=== PATIENT | female | born 1985 | race African-American/Black ===

== ENCOUNTER 2020-06-11 16:55 | Emergency (ER) | payer MEDICAID ==
[~2020-06-11] VITALS: Ht 162.6 cm; Wt 68.2 kg
[2020-06-11 18:37] LABS: BASOPHILS % (AUTO) 1.2 % (0.0-2.0); EOSINOPHILS % (AUTO) 0.3 % (1.0-6.0); HEMATOCRIT 39.1 % (36-46); HEMOGLOBIN 12.6 g/dL (12.0-16.0); LYMPHOCYTES # (AUTO) 2.3 K/uL (1.0-4.8); MEAN CORPUSCULAR HEMOGLOBIN 28.5 pg (26.0-34.0); MEAN CORPUSCULAR HGB CONC 32.3 G/dL (31.0-37.0); MEAN CORPUSCULAR VOLUME 88 fL (80-100); MONOCYTES # (AUTO) 0.5 K/uL (0.1-1.0); MONOCYTES % (AUTO) 5.6 % (2.0-9.0); NEUTROPHILS # (AUTO) 6.3 K/uL (1.8-7.7); NEUTROPHILS % (AUTO) 67.9 % (40.0-70.0); PLATELET COUNT (AUTO) 427 K/uL (150-450); RED BLOOD CELL COUNT(AUTO) 4.43 MIL/uL (4.00-5.20); RED CELL DISTRIBUTION WIDTH 14.5 % (11.5-14.5)
[2020-06-11 18:53] LABS: ANION GAP 12 mmol/L (8-16); CALCIUM, TOTAL 9.1 mg/dL (8.8-10.5); CARBON DIOXIDE 25 mmol/L (22-29); CHLORIDE 102 mmol/L (98-107); GLOMERULAR FILTR. RATE CALC > 60 mL/min (>60); GLUCOSE,RANDOM 69 mg/dL (70-110); POTASSIUM 3.5 mmol/L (3.5-5.1); SODIUM SERUM 139 mmol/L (136-145); UREA NITROGEN, BLOOD 8 mg/dL (7-18)
[2020-06-11 19:18] LABS: ALANINE AMINOTRANSFERASE 24 U/L (12-78); ALBUMIN 3.8 g/dL (3.4-5.0); ALKALINE PHOSPHATASE 75 U/L (46-116); ASPARTATE AMINOTRANSFERASE 25 U/L (15-37); BILIRUBIN,TOTAL 0.5 mg/dL (0.1-1.0); HCG,QUANTITATIVE < 1 mIU/mL (0-6); TOTAL PROTEIN, SERUM 8.5 g/dL (6.4-8.2)
[2020-06-11 20:54] VITALS: BP 148/88
== END 2020-06-11 20:55 | disposition home or self-care (01) ==
LOC: EMS 16:55
DX: R51.9 Headache, unspecified (principal); F15.90 Other stimulant use, unspecified, uncomplicated
CPT/HCPCS: 80053; 84702; 85025; 99283; G0480

== ENCOUNTER 2020-11-12 05:15 | Emergency (ER) | payer MEDICAID, SELFPAY ==
[~2020-11-12] VITALS: Ht 162.6 cm; Wt 68.0 kg
[2020-11-12 05:51] LABS: BASOPHILS % (AUTO) 1.1 % (0.0-2.0); EOSINOPHILS % (AUTO) 0.6 % (1.0-6.0); HEMATOCRIT 38.9 % (36-46); HEMOGLOBIN 12.5 g/dL (12.0-16.0); LYMPHOCYTES # (AUTO) 2.3 K/uL (1.0-4.8); LYMPHOCYTES % (AUTO) 20.4 % (22.0-44.0); MEAN CORPUSCULAR HEMOGLOBIN 27.9 pg (26.0-34.0); MEAN CORPUSCULAR HGB CONC 32.1 G/dL (31.0-37.0); MEAN CORPUSCULAR VOLUME 87 fL (80-100); MONOCYTES # (AUTO) 0.6 K/uL (0.1-1.0); MONOCYTES % (AUTO) 5.3 % (2.0-9.0); NEUTROPHILS # (AUTO) 8.2 K/uL (1.8-7.7); NEUTROPHILS % (AUTO) 72.6 % (40.0-70.0); PLATELET COUNT (AUTO) 385 K/uL (150-450); RED BLOOD CELL COUNT(AUTO) 4.48 MIL/uL (4.00-5.20); RED CELL DISTRIBUTION WIDTH 15.4 % (11.5-14.5)
[2020-11-12 06:11] LABS: CALCIUM, TOTAL 8.5 mg/dL (8.8-10.5); CARBON DIOXIDE 29 mmol/L (22-29); CHLORIDE 101 mmol/L (98-107); CREATININE 0.56 mg/dL (0.60-1.30); GLOMERULAR FILTR. RATE CALC > 60 mL/min (>60); GLUCOSE,RANDOM 83 mg/dL (70-110); POTASSIUM 3.2 mmol/L (3.5-5.1); UREA NITROGEN, BLOOD 14 mg/dL (7-18)
[2020-11-12 06:23] LABS: ALANINE AMINOTRANSFERASE 19 U/L (12-78); ALBUMIN 3.7 g/dL (3.4-5.0); ALKALINE PHOSPHATASE 65 U/L (46-116); ANION GAP 9 mmol/L (8-16); ASPARTATE AMINOTRANSFERASE 20 U/L (15-37); BILIRUBIN,TOTAL 0.4 mg/dL (0.1-1.0); HCG,QUANTITATIVE < 1 mIU/mL (0-6); SODIUM SERUM 139 mmol/L (136-145); TOTAL PROTEIN, SERUM 7.9 g/dL (6.4-8.2)
[2020-11-12 07:12] VITALS: BP 134/81
[2020-11-12] MEDS ORDERED: POTASSIUM CHLORIDE 10% 40 MEQ/30 ML LIQUID UDCUP PO ONE (07:30)
== END 2020-11-12 08:27 | disposition home or self-care (01) ==
LOC: EMS 05:15
DX: F98.9 Unspecified behavioral and emotional disorders with onset usually occurring in childhood and adolescence (principal); E87.6 Hypokalemia; F17.210 Nicotine dependence, cigarettes, uncomplicated; F15.90 Other stimulant use, unspecified, uncomplicated
CPT/HCPCS: 36415; 80053; 84702; 85025; 99284; G0480

== ENCOUNTER 2020-11-12 12:44 | Emergency (ER) | payer MEDICAID ==
[~2020-11-12] VITALS: Ht 154.9 cm; Wt 45.5 kg
[2020-11-12 15:03] VITALS: BP 120/70
== END 2020-11-12 15:04 | disposition home or self-care (01) ==
LOC: EMS 12:46
DX: F60.0 Paranoid personality disorder (principal); F17.210 Nicotine dependence, cigarettes, uncomplicated; F15.90 Other stimulant use, unspecified, uncomplicated
CPT/HCPCS: 99283

== ENCOUNTER 2020-11-14 08:16 | Inpatient (IN) | payer MEDICAID ==
[~2020-11-14] VITALS: Ht 157.5 cm; Wt 59.1 kg
[2020-11-14 10:09] LABS: COVID AG,FIA SOURCE NASOPHARYNGEAL
[2020-11-14 11:28] LABS: BASOPHILS % (AUTO) 2.2 % (0.0-2.0); EOSINOPHILS % (AUTO) 0.4 % (1.0-6.0); HEMATOCRIT 41.1 % (36-46); HEMOGLOBIN 13.2 g/dL (12.0-16.0); LYMPHOCYTES # (AUTO) 2.9 K/uL (1.0-4.8); LYMPHOCYTES % (AUTO) 24.6 % (22.0-44.0); MEAN CORPUSCULAR HEMOGLOBIN 28.2 pg (26.0-34.0); MEAN CORPUSCULAR HGB CONC 32.1 G/dL (31.0-37.0); MEAN CORPUSCULAR VOLUME 88 fL (80-100); MONOCYTES # (AUTO) 0.6 K/uL (0.1-1.0); MONOCYTES % (AUTO) 5.1 % (2.0-9.0); NEUTROPHILS % (AUTO) 67.7 % (40.0-70.0); PLATELET COUNT (AUTO) 385 K/uL (150-450); RED BLOOD CELL COUNT(AUTO) 4.69 MIL/uL (4.00-5.20)
[2020-11-14 11:40] LABS: ANION GAP 12 mmol/L (8-16); CALCIUM, TOTAL 9.2 mg/dL (8.8-10.5); CARBON DIOXIDE 26 mmol/L (22-29); CHLORIDE 102 mmol/L (98-107); CREATININE 0.67 mg/dL (0.60-1.30); GLOMERULAR FILTR. RATE CALC > 60 mL/min (>60); GLUCOSE,RANDOM 98 mg/dL (70-110); POTASSIUM 3.8 mmol/L (3.5-5.1); SODIUM SERUM 140 mmol/L (136-145); UREA NITROGEN, BLOOD 10 mg/dL (7-18)
[2020-11-14] MEDS ORDERED: LORazepam 2 MG/ML VIAL IM ONE (11:45)
[2020-11-14] MEDS ORDERED: HALOPERIDOL LACTATE 5 MG/ML VIAL IM ONE (11:45)
[2020-11-14] MEDS ORDERED: DiphenhydrAMINE HCL 50 MG/ML VIAL IM ONE (11:45)
[2020-11-14 11:54] LABS: ALANINE AMINOTRANSFERASE 29 U/L (12-78); ALBUMIN 4.2 g/dL (3.4-5.0); ALKALINE PHOSPHATASE 74 U/L (46-116); ASPARTATE AMINOTRANSFERASE 26 U/L (15-37); BILIRUBIN,TOTAL 0.4 mg/dL (0.1-1.0); HCG,QUANTITATIVE < 1 mIU/mL (0-6); TOTAL PROTEIN, SERUM 8.5 g/dL (6.4-8.2)
[2020-11-14] MEDS ORDERED: HALOPERIDOL 5 MG TABLET PO PRN (13:15)
[2020-11-14 16:03] VITALS: BP 128/82
[2020-11-15 00:03] VITALS: BP 132/68
[2020-11-15 08:05] VITALS: BP 146/71
[2020-11-15] MEDS ORDERED: MAGNESIUM HYDROXIDE SUSPENSION 30 ML UDCUP PO PRN (08:30)
[2020-11-15] MEDS ORDERED: GuaiFENesin/D-METHORPHAN [SUGAR-FREE] 200-20MG/10 ML SYRUP UDCUP PO PRN (08:30)
[2020-11-15] MEDS ORDERED: DOCUSATE SODIUM 100 MG CAPSULE PO PRN (08:30)
[2020-11-15] MEDS ORDERED: CloNIDine HCL 0.1 MG TABLET PO PRN (08:30)
[2020-11-15] MEDS ORDERED: ONDANSETRON HCL 4 MG TABLET PO PRN (08:30)
[2020-11-15] MEDS ORDERED: ALBUTEROL SULFATE HFA 90 MCG/PUFF 8 GM INHALER IH PRN (08:30)
[2020-11-15] MEDS ORDERED: LOPERAMIDE HCL 2 MG CAPSULE PO PRN (08:30)
[2020-11-15] MEDS ORDERED: PETROLATUM,WHITE 28 GM JELLY TP PRN (08:30)
[2020-11-15] MEDS ORDERED: NICOTINE 14 MG/24 HOUR PATCH TD PRN (08:30)
[2020-11-15 16:04] VITALS: BP 105/61
[2020-11-15] MEDS: OLANZapine 5 MG TABLET PO SCH (16:04)
[2020-11-16 02:19] VITALS: BP 111/67
[2020-11-16 07:29] LABS: BASOPHILS % (AUTO) 1.1 % (0.0-2.0); EOSINOPHILS % (AUTO) 1.4 % (1.0-6.0); HEMATOCRIT 38.8 % (36-46); HEMOGLOBIN 12.3 g/dL (12.0-16.0); LYMPHOCYTES # (AUTO) 2.5 K/uL (1.0-4.8); MEAN CORPUSCULAR HEMOGLOBIN 27.6 pg (26.0-34.0); MEAN CORPUSCULAR HGB CONC 31.6 G/dL (31.0-37.0); MEAN CORPUSCULAR VOLUME 88 fL (80-100); MONOCYTES # (AUTO) 0.4 K/uL (0.1-1.0); MONOCYTES % (AUTO) 6.2 % (2.0-9.0); NEUTROPHILS # (AUTO) 3.3 K/uL (1.8-7.7); NEUTROPHILS % (AUTO) 52.3 % (40.0-70.0); PLATELET COUNT (AUTO) 345 K/uL (150-450); RED BLOOD CELL COUNT(AUTO) 4.43 MIL/uL (4.00-5.20); RED CELL DISTRIBUTION WIDTH 15.8 % (11.5-14.5)
[2020-11-16 07:45] LABS: CHOL/HDL RATIO 3.1 (3.9-5.7)
[2020-11-16 08:26] VITALS: BP 112/76
[2020-11-16] MEDS: OLANZapine 5 MG TABLET PO SCH ×2 (08:49→16:41)
[2020-11-16 16:36] VITALS: BP 122/61
[2020-11-16] MEDS: LORazepam 2 MG TABLET PO PRN (16:41)
[2020-11-17 04:12] VITALS: BP 140/89
[2020-11-17] MEDS: MAG HYDROX/AL HYDROX/SIMETH ES 30 ML SUSPENSION UDCUP PO PRN (04:12)
[2020-11-17] MEDS: OLANZapine 5 MG TABLET PO SCH ×2 (08:18→17:04)
[2020-11-17 08:45] VITALS: BP 141/90
[2020-11-17 16:16] VITALS: BP 140/77
[2020-11-18 00:55] VITALS: BP 119/73
[2020-11-18 08:24] VITALS: BP 125/85
[2020-11-18] MEDS: OLANZapine 5 MG TABLET PO SCH ×2 (08:50→16:48)
[2020-11-18 16:30] VITALS: BP 119/70
[2020-11-18 16:50] VITALS: BP 119/70
[2020-11-18] MEDS: IBUPROFEN 400 MG TABLET PO PRN (16:50)
[2020-11-19 01:14] VITALS: BP 121/73
[2020-11-19 04:59] VITALS: BP 132/101
[2020-11-19] MEDS: ACETAMINOPHEN 325 MG TABLET PO PRN (05:04)
[2020-11-19] MEDS: OLANZapine 5 MG TABLET PO SCH ×2 (08:13→16:07)
[2020-11-19 08:52] VITALS: BP 140/72
[2020-11-19] MEDS: LORazepam 2 MG TABLET PO PRN (10:40)
[2020-11-19 15:46] VITALS: BP 119/67
[2020-11-19] MEDS: IBUPROFEN 400 MG TABLET PO PRN (15:46)
[2020-11-19 16:05] VITALS: BP 119/67
[2020-11-19] MEDS: ZOLPIDEM TARTRATE 10 MG TABLET PO PRN (21:07)
[2020-11-20] MEDS: ACETAMINOPHEN 325 MG TABLET PO PRN ×2 (00:04→12:40)
[2020-11-20 01:56] VITALS: BP 122/73
[2020-11-20 04:00] VITALS: BP 120/68
[2020-11-20] MEDS: LORazepam 2 MG TABLET PO PRN (04:06)
[2020-11-20] MEDS: OLANZapine 5 MG TABLET PO SCH ×2 (08:01→16:53)
[2020-11-20] MEDS: MAG HYDROX/AL HYDROX/SIMETH ES 30 ML SUSPENSION UDCUP PO PRN ×2 (08:01→16:39)
[2020-11-20 08:23] VITALS: BP 127/93
[2020-11-20] MEDS: IBUPROFEN 400 MG TABLET PO PRN (11:09)
[2020-11-20 16:15] VITALS: BP 135/66
[2020-11-20] MEDS: ZOLPIDEM TARTRATE 10 MG TABLET PO PRN (20:48)
[2020-11-21 01:57] VITALS: BP 130/77
[2020-11-21] MEDS: OLANZapine 5 MG TABLET PO SCH ×2 (09:09→17:01)
[2020-11-21] MEDS: MULTIVITAMINS WITH MINERALS, THERAPEUTIC TABLET PO SCH (09:09)
[2020-11-21 09:33] VITALS: BP 130/74
[2020-11-21 16:18] VITALS: BP 111/79
[2020-11-22 00:45] VITALS: BP 140/82
[2020-11-22 08:29] VITALS: BP 124/73
[2020-11-22] MEDS: LORazepam 2 MG TABLET PO PRN (08:44)
[2020-11-22] MEDS: OLANZapine 5 MG TABLET PO SCH ×2 (08:44→17:45)
[2020-11-22] MEDS: MULTIVITAMINS WITH MINERALS, THERAPEUTIC TABLET PO SCH (08:44)
[2020-11-22 16:19] VITALS: BP 123/69
[2020-11-22] MEDS: IBUPROFEN 400 MG TABLET PO PRN (17:45)
[2020-11-23 00:29] VITALS: BP 120/68
[2020-11-23] MEDS: MAG HYDROX/AL HYDROX/SIMETH ES 30 ML SUSPENSION UDCUP PO PRN ×2 (00:30→09:34)
[2020-11-23] MEDS: IBUPROFEN 400 MG TABLET PO PRN (03:08)
[2020-11-23 08:17] VITALS: BP 137/84
[2020-11-23] MEDS ORDERED: OLAN5TAB52 PO (08:25)
[2020-11-23] MEDS: MULTIVITAMINS WITH MINERALS, THERAPEUTIC TABLET PO SCH (09:02)
[2020-11-23] MEDS: OLANZapine 5 MG TABLET PO SCH (09:02)
== END 2020-11-23 10:00 | disposition home or self-care (01) | DRG 750 ==
LOC: EMS 08:19 → B2S 12:54
PROVIDERS: ADMIT Psychiatry & Neurology Child & Adolescent Psychiatry; ATTEND Psychiatry & Neurology Child & Adolescent Psychiatry
DX: F20.0 Paranoid schizophrenia (principal); Z59.0 Homelessness; D72.829 Elevated white blood cell count, unspecified; F19.10 Other psychoactive substance abuse, uncomplicated; R03.0 Elevated blood-pressure reading, without diagnosis of hypertension; Z20.822 Contact with and (suspected) exposure to COVID-19; F41.9 Anxiety disorder, unspecified; F17.210 Nicotine dependence, cigarettes, uncomplicated
CPT/HCPCS: 80053; 80061; 84702; 85025; 99285; G0480; J1200; J1630; J2060

== ENCOUNTER 2021-08-09 22:50 | Emergency (ER) | payer MEDICAID ==
[~2021-08-09] VITALS: Ht 154.9 cm; Wt 67.7 kg
[~2021-08-09 22:50] MED LIST: OLAN5TAB52 PO
[2021-08-10 02:03] LABS: BASOPHILS % (AUTO) 0.6 % (0.0-2.0); EOSINOPHILS % (AUTO) 0.3 % (1.0-6.0); HEMATOCRIT 26.2 % (36-46); HEMOGLOBIN 8.3 g/dL (12.0-16.0); LYMPHOCYTES % (AUTO) 31.8 % (22.0-44.0); MEAN CORPUSCULAR HEMOGLOBIN 22.9 pg (26.0-34.0); MEAN CORPUSCULAR HGB CONC 31.5 G/dL (31.0-37.0); MEAN CORPUSCULAR VOLUME 72 fL (80-100); MONOCYTES # (AUTO) 0.5 K/uL (0.1-1.0); MONOCYTES % (AUTO) 7.6 % (2.0-9.0); NEUTROPHILS # (AUTO) 3.7 K/uL (1.8-7.7); NEUTROPHILS % (AUTO) 59.7 % (40.0-70.0); PLATELET COUNT (AUTO) 423 K/uL (150-450); RED BLOOD CELL COUNT(AUTO) 3.61 MIL/uL (4.00-5.20); RED CELL DISTRIBUTION WIDTH 17.7 % (11.5-14.5)
[2021-08-10 02:10] LABS: ANION GAP 8 mmol/L (8-16); CALCIUM, TOTAL 8.4 mg/dL (8.8-10.5); CARBON DIOXIDE 26 mmol/L (22-29); CHLORIDE 103 mmol/L (98-107); CREATININE 0.56 mg/dL (0.60-1.30); GLUCOSE,RANDOM 73 mg/dL (70-110); POTASSIUM 3.8 mmol/L (3.5-5.1); SODIUM SERUM 137 mmol/L (136-145); UREA NITROGEN, BLOOD 11 mg/dL (7-18)
[2021-08-10 02:20] LABS: GLOMERULAR FILTR. RATE CALC > 60 mL/min (>60)
[2021-08-10 02:41] LABS: ALANINE AMINOTRANSFERASE 21 U/L (12-78); ALBUMIN 2.2 g/dL (3.4-5.0); ALKALINE PHOSPHATASE 260 U/L (46-116); ASPARTATE AMINOTRANSFERASE 28 U/L (15-37); BILIRUBIN,TOTAL 0.3 mg/dL (0.1-1.0); HCG,QUANTITATIVE 26477 mIU/mL (0-6); TOTAL PROTEIN, SERUM 6.9 g/dL (6.4-8.2)
[2021-08-10 06:11] LABS: BILIRUBIN,URINE NEGATIVE (NEGATIVE); GLUCOSE, URINE (UA) NEGATIVE (NEGATIVE); LEUKOCYTE ESTERASE ,URINE LARGE (NEGATIVE); NITRATE,URINE NEGATIVE (NEGATIVE); OCCULT BLOOD,URINE NEGATIVE (NEGATIVE); PROTEIN,URINE 30-70 mg/dL (NEGATIVE); SPECIFIC GRAVITIY, URINE 1.027 (1.003-1.030); UROBILINOGEN,URINE <=1.0 mg/dL (<=1.0)
[2021-08-10 06:15] LABS: APPEARANCE,URINE HAZY (CLEAR)
[2021-08-10 06:21] LABS: RBC,URINE 0-2 /HPF (0-2); WBC,URINE 26-50 /HPF (0-5)
[2021-08-10 06:22] LABS: BACTERIA,URINE Moderate /HPF (None Seen); YEAST,URINE Moderate /HPF (None Seen)
[2021-08-10 06:23] LABS: SQUAMOUS EPITHELIAL CELL,UR Many /LPF (None Seen)
[2021-08-10 07:17] LABS: AMPHET/METH SCREEN,URINE POSITIVE (NEGATIVE); BARBITURATE SCREEN, URINE NEGATIVE (NEGATIVE); BENZODIAZEPINES SCREEN,URINE NEGATIVE (NEGATIVE); CANNABINOID SCREEN,URINE POSITIVE (NEGATIVE); COCAINE SCREEN,URINE NEGATIVE (NEGATIVE); METHADONE SCREEN, URINE NEGATIVE (NEGATIVE); OPIATE SCREEN,URINE NEGATIVE (NEGATIVE)
[2021-08-10 07:20] LABS: PHENCYCLIDINE SCREEN,URINE NEGATIVE (NEGATIVE)
[2021-08-10 11:45] VITALS: BP 133/85
== END 2021-08-10 12:24 | disposition home or self-care (01) ==
LOC: EMS 22:51
DX: O26.893 Other specified pregnancy related conditions, third trimester (principal); R10.2 Pelvic and perineal pain; F15.90 Other stimulant use, unspecified, uncomplicated; F17.210 Nicotine dependence, cigarettes, uncomplicated; Z79.899 Other long term (current) drug therapy; Z3A.33 33 weeks gestation of pregnancy
CPT/HCPCS: 36415; 76830; 76856; 80053; 80307; 81001; 84702; 85025; 87086; 99285; G0480

== ENCOUNTER 2021-08-11 08:30 | Emergency (ER) | payer MEDICAID ==
[~2021-08-11] VITALS: Ht 157.5 cm; Wt 64.9 kg
[2021-08-11 09:25] LABS: BASOPHILS % (AUTO) 1.1 % (0.0-2.0); EOSINOPHILS % (AUTO) 0.2 % (1.0-6.0); HEMATOCRIT 27.9 % (36-46); HEMOGLOBIN 8.8 g/dL (12.0-16.0); LYMPHOCYTES # (AUTO) 2.2 K/uL (1.0-4.8); MEAN CORPUSCULAR HEMOGLOBIN 22.7 pg (26.0-34.0); MEAN CORPUSCULAR HGB CONC 31.8 G/dL (31.0-37.0); MEAN CORPUSCULAR VOLUME 72 fL (80-100); MONOCYTES # (AUTO) 0.5 K/uL (0.1-1.0); NEUTROPHILS # (AUTO) 4.9 K/uL (1.8-7.7); NEUTROPHILS % (AUTO) 63.7 % (40.0-70.0); PLATELET COUNT (AUTO) 427 K/uL (150-450); RED BLOOD CELL COUNT(AUTO) 3.89 MIL/uL (4.00-5.20)
[2021-08-11 09:43] LABS: ANION GAP 9 mmol/L (8-16); CALCIUM, TOTAL 7.7 mg/dL (8.8-10.5); CARBON DIOXIDE 22 mmol/L (22-29); CHLORIDE 100 mmol/L (98-107); CREATININE 0.44 mg/dL (0.60-1.30); GLUCOSE,RANDOM 65 mg/dL (70-110); POTASSIUM 3.7 mmol/L (3.5-5.1); SODIUM SERUM 131 mmol/L (136-145); UREA NITROGEN, BLOOD 3 mg/dL (7-18)
[2021-08-11 09:47] LABS: GLOMERULAR FILTR. RATE CALC > 60 mL/min (>60)
[2021-08-11 10:07] LABS: ALANINE AMINOTRANSFERASE 18 U/L (12-78); ALKALINE PHOSPHATASE 247 U/L (46-116); ASPARTATE AMINOTRANSFERASE 24 U/L (15-37); BILIRUBIN,TOTAL 0.3 mg/dL (0.1-1.0); TOTAL PROTEIN, SERUM 6.8 g/dL (6.4-8.2)
[2021-08-11 10:16] LABS: HCG,QUANTITATIVE 53741 mIU/mL (0-6)
[2021-08-11 11:00] LABS: APPEARANCE,URINE CLEAR (CLEAR); BILIRUBIN,URINE NEGATIVE (NEGATIVE); GLUCOSE, URINE (UA) NEGATIVE (NEGATIVE); KETONES,URINE NEGATIVE (NEGATIVE); NITRATE,URINE NEGATIVE (NEGATIVE); OCCULT BLOOD,URINE NEGATIVE (NEGATIVE); PH,URINE 6.5 (5.0-8.0); PROTEIN,URINE NEGATIVE (NEGATIVE); UROBILINOGEN,URINE <=1.0 mg/dL (<=1.0)
[2021-08-11 11:17] LABS: BACTERIA,URINE Few /HPF (None Seen); LEUKOCYTE ESTERASE ,URINE MODERATE (NEGATIVE); RBC,URINE 0-2 /HPF (0-2); SQUAMOUS EPITHELIAL CELL,UR Few /LPF (None Seen)
[2021-08-11 12:05] VITALS: BP 140/82
== END 2021-08-11 12:07 | disposition home or self-care (01) ==
LOC: EMS 08:34
DX: O20.9 Hemorrhage in early pregnancy, unspecified (principal); O99.333 Smoking (tobacco) complicating pregnancy, third trimester; O26.893 Other specified pregnancy related conditions, third trimester; F19.90 Other psychoactive substance use, unspecified, uncomplicated; F17.210 Nicotine dependence, cigarettes, uncomplicated; Z3A.33 33 weeks gestation of pregnancy
CPT/HCPCS: 76805; 80053; 81001; 84702; 85025; 87086; 99285

== ENCOUNTER 2021-09-03 10:57 | Emergency (ER) | payer MEDICAID ==
[~2021-09-03] VITALS: Ht 154.9 cm; Wt 68.2 kg
[2021-09-03] MEDS ORDERED: SODIUM CHLORIDE 0.9% 500 ML IV ONE (12:15)
[2021-09-03 12:39] LABS: BASOPHILS % (AUTO) 2.6 % (0.0-2.0); EOSINOPHILS % (AUTO) 1.3 % (1.0-6.0); HEMATOCRIT 32.3 % (36-46); HEMOGLOBIN 10.2 g/dL (12.0-16.0); LYMPHOCYTES # (AUTO) 2.1 K/uL (1.0-4.8); LYMPHOCYTES % (AUTO) 23.7 % (22.0-44.0); MEAN CORPUSCULAR HEMOGLOBIN 23.4 pg (26.0-34.0); MEAN CORPUSCULAR HGB CONC 31.5 G/dL (31.0-37.0); MEAN CORPUSCULAR VOLUME 74 fL (80-100); MONOCYTES # (AUTO) 0.5 K/uL (0.1-1.0); MONOCYTES % (AUTO) 5.9 % (2.0-9.0); NEUTROPHILS # (AUTO) 5.8 K/uL (1.8-7.7); NEUTROPHILS % (AUTO) 66.5 % (40.0-70.0); RED BLOOD CELL COUNT(AUTO) 4.35 MIL/uL (4.00-5.20); RED CELL DISTRIBUTION WIDTH 22.4 % (11.5-14.5)
[2021-09-03 13:00] LABS: PLATELET COUNT (AUTO) 517 K/uL (150-450)
[2021-09-03 13:01] LABS: PLATELET MORPHOLOGY COMMENT LARGE PLTS PRESENT
[2021-09-03 14:13] VITALS: BP 137/87
== END 2021-09-03 15:23 | disposition home or self-care (01) ==
LOC: EMS 10:57
DX: R06.02 Shortness of breath (principal); F15.90 Other stimulant use, unspecified, uncomplicated; F17.210 Nicotine dependence, cigarettes, uncomplicated
CPT/HCPCS: 36415; 71046; 84703; 85025; 93005; 99285; J7040